=== PATIENT | female | born 1945 | race Caucasian/White ===

== ENCOUNTER 2016-10-29 11:34 | Outpatient (CLI) | payer MEDICARE, BC ==
[2016-10-29 19:47] LABS: BASOPHILS % (AUTO) 0.6 %; EOSINOPHILS # (AUTO) 0.3 10^3/uL (0.0-0.7); EOSINOPHILS % (AUTO) 3.7 %; HCT - HEMATOCRIT 39.2 % (37.0-47.0); HGB - HEMOGLOBIN 12.8 g/dL (12.0-16.0); LYMPHOCYTES % (AUTO) 26.8 %; MEAN CORPUSCULAR HEMOGLOBIN 30.6 pg (27.0-31.0); MEAN CORPUSCULAR HGB CONC 32.7 g/dL (32.0-36.0); MEAN CORPUSCULAR VOLUME 93.5 fL (81.0-99.0); MEAN PLATELET VOLUME 7.4 fL (7.9-10.8); MONOCYTES # (AUTO) 0.5 10^3/uL (0.0-1.0); MONOCYTES % (AUTO) 6.6 %; NEUTROPHILS # (AUTO) 4.6 10^3/uL (1.5-6.6); NEUTROPHILS % (AUTO) 62.3 %; RED BLOOD COUNT 4.19 10^6/uL (4.20-5.40); RED CELL DISTRIBUTION WIDTH 14.8 % (12.0-15.0); UNCORRECTED WHITE BLOOD COUNT 7.4 x10^3/uL; WHITE BLOOD COUNT 7.4 x10^3/uL (4.8-10.8)
[2016-10-29 19:54] LABS: ALBUMIN/GLOBULIN RATIO 1.4 (1.0-2.2); BILIRUBIN,TOTAL 0.6 mg/dL (0.2-1.0); BUN - BLOOD UREA NITROGEN 23 mg/dL (6-20); CALCIUM 9.2 mg/dL (8.5-10.3); CARBON DIOXIDE - CO2 27 mmol/L (21-32); CHLORIDE 101 mmol/L (101-111); GFR - MDRD 55 (>89); GLUCOSE 119 mg/dL (70-100); POTASSIUM 4.2 mmol/L (3.5-5.0); SODIUM 137 mmol/L (135-145)
[2016-10-29 20:29] LABS: HEMOGLOBIN A1C 0.64 g/dL
== END 2016-10-29 11:35 | disposition home or self-care (01) ==
LOC: LAB.N 11:34
PROVIDERS: ATTEND Nurse Practitioner Gerontology
DX: E11.9 Type 2 diabetes mellitus without complications (principal); I10 Essential (primary) hypertension; Z79.899 Other long term (current) drug therapy
CPT/HCPCS: 36415; 80053; 83036; 84443; 85025

== ENCOUNTER 2017-02-01 10:36 | Outpatient (CLI) | payer MEDICARE, BC ==
[2017-02-01 13:27] LABS: BUN - BLOOD UREA NITROGEN 21 mg/dL (6-20); CALCIUM 9.2 mg/dL (8.5-10.3); CARBON DIOXIDE - CO2 28 mmol/L (21-32); CHLORIDE 100 mmol/L (101-111); CHOLESTEROL 179 mg/dL; CREATININE 0.9 mg/dL (0.4-1.0); GFR - MDRD 62 (>89); GLUCOSE 149 mg/dL (70-100); HDL CHOLESTEROL 60 mg/dL; LDL/HDL RATIO 1.4 (<4.4); POTASSIUM 4.3 mmol/L (3.5-5.0); SODIUM 137 mmol/L (135-145); TRIGLYCERIDES 181 mg/dL; VLDL CHOLESTEROL 36 mg/dL
== END 2017-02-01 10:37 | disposition home or self-care (01) ==
LOC: LAB.N 10:36
PROVIDERS: ATTEND Nurse Practitioner Gerontology
DX: R94.4 Abnormal results of kidney function studies (principal); E78.5 Hyperlipidemia, unspecified; E78.1 Pure hyperglyceridemia
CPT/HCPCS: 36415; 80048; 80061

== ENCOUNTER 2017-02-25 13:46 | Outpatient (CLI) | payer MEDICARE, BC ==
[2017-02-25 19:51] LABS: HB2 TOTAL 12.9 g/dL; HEMOGLOBIN A1C 0.65 g/dL; HEMOGLOBIN A1C % 6.8 % (4.6-6.2)
== END 2017-02-25 13:47 | disposition home or self-care (01) ==
LOC: LAB.N 13:46
PROVIDERS: ATTEND Nurse Practitioner Gerontology
DX: E11.9 Type 2 diabetes mellitus without complications (principal)
CPT/HCPCS: 36415; 83036

== ENCOUNTER 2017-05-29 13:07 | Outpatient (CLI) | payer MEDICARE, BC ==
[2017-05-29 19:59] LABS: HB2 TOTAL 13.8 g/dL; HEMOGLOBIN A1C 0.68 g/dL; HEMOGLOBIN A1C % 6.7 % (4.6-6.2)
== END 2017-05-29 13:08 | disposition home or self-care (01) ==
LOC: LAB.N 13:07
PROVIDERS: ATTEND Nurse Practitioner Gerontology
DX: E11.9 Type 2 diabetes mellitus without complications (principal)
CPT/HCPCS: 36415; 83036

== ENCOUNTER 2018-04-02 10:47 | Outpatient (CLI) | payer MEDICARE, BC ==
[2018-04-02 12:49] LABS: BASOPHILS % (AUTO) 0.5 %; EOSINOPHILS # (AUTO) 0.3 10^3/uL (0.0-0.7); HGB - HEMOGLOBIN 12.3 g/dL (12.0-16.0); LYMPHOCYTES # (AUTO) 1.8 10^3/uL (1.5-3.5); LYMPHOCYTES % (AUTO) 27.2 %; MEAN CORPUSCULAR HEMOGLOBIN 30.9 pg (27.0-31.0); MEAN CORPUSCULAR HGB CONC 34.3 g/dL (32.0-36.0); MEAN CORPUSCULAR VOLUME 90.1 fL (81.0-99.0); MEAN PLATELET VOLUME 7.6 fL (7.9-10.8); MONOCYTES # (AUTO) 0.5 10^3/uL (0.0-1.0); MONOCYTES % (AUTO) 7.9 %; NEUTROPHILS % (AUTO) 60.4 %; PLT - PLATELET COUNT 440 10^3/uL (130-450); RED CELL DISTRIBUTION WIDTH 14.3 % (12.0-15.0); WHITE BLOOD COUNT 6.6 x10^3/uL (4.8-10.8)
[2018-04-02 13:21] LABS: HB2 TOTAL 13.2 g/dL; HEMOGLOBIN A1C 0.72 g/dL; HEMOGLOBIN A1C % 7.1 % (4.6-6.2)
[2018-04-02 13:25] LABS: ALBUMIN 4.4 g/dL (3.2-5.5); ALBUMIN/GLOBULIN RATIO 1.5 (1.0-2.2); ALKALINE PHOSPHATASE 60 IU/L (42-121); ALT ALANINE AMINOTRANSFERASE 24 IU/L (10-60); AST ASPARTATE AMINOTRANSFERASE 26 IU/L (10-42); BILIRUBIN,TOTAL 0.5 mg/dL (0.2-1.0); BUN - BLOOD UREA NITROGEN 19 mg/dL (6-20); CALCIUM 9.2 mg/dL (8.5-10.3); CARBON DIOXIDE - CO2 27 mmol/L (21-32); CHLORIDE 100 mmol/L (101-111); CHOL/HDL RATIO 3.7 (<4.4); CHOLESTEROL 174 mg/dL; CREATININE 0.9 mg/dL (0.4-1.0); GFR - MDRD 62 (>89); GLUCOSE 172 mg/dL (70-100); HDL CHOLESTEROL 47 mg/dL; LDL CHOLESTEROL,CALCULATED 78 mg/dL; LDL/HDL RATIO 1.7 (<4.4); SODIUM 137 mmol/L (135-145); TOTAL PROTEIN 7.4 g/dL (6.7-8.2); VLDL CHOLESTEROL 49 mg/dL
== END 2018-04-02 23:59 | disposition home or self-care (01) ==
LOC: LAB.N 10:47
PROVIDERS: ATTEND Nurse Practitioner Gerontology
DX: F41.8 Other specified anxiety disorders (principal); E78.5 Hyperlipidemia, unspecified; I10 Essential (primary) hypertension; E11.9 Type 2 diabetes mellitus without complications; Z79.899 Other long term (current) drug therapy
CPT/HCPCS: 36415; 80053; 80061; 83036; 83721; 85025

== ENCOUNTER 2018-08-15 09:41 | Outpatient (CLI) | payer MEDICARE, BC ==
[2018-08-15 12:04] LABS: BASOPHILS % (AUTO) 0.3 %; EOSINOPHILS # (AUTO) 0.3 10^3/uL (0.0-0.7); EOSINOPHILS % (AUTO) 5.6 %; HGB - HEMOGLOBIN 11.5 g/dL (12.0-16.0); LYMPHOCYTES # (AUTO) 1.4 10^3/uL (1.5-3.5); LYMPHOCYTES % (AUTO) 23.3 %; MEAN CORPUSCULAR HEMOGLOBIN 30.7 pg (27.0-31.0); MEAN CORPUSCULAR HGB CONC 32.5 g/dL (32.0-36.0); MEAN CORPUSCULAR VOLUME 94.7 fL (81.0-99.0); MEAN PLATELET VOLUME 9.6 fL (7.9-10.8); MONOCYTES # (AUTO) 0.5 10^3/uL (0.0-1.0); MONOCYTES % (AUTO) 7.5 %; NEUTROPHILS # (AUTO) 3.8 10^3/uL (1.5-6.6); NEUTROPHILS % (AUTO) 62.6 %; PLT - PLATELET COUNT 434 10^3/uL (130-450); RED BLOOD COUNT 3.74 10^6/uL (4.20-5.40); RED CELL DISTRIBUTION WIDTH 13.7 % (12.0-15.0); WHITE BLOOD COUNT 6.1 x10^3/uL (4.8-10.8)
[2018-08-15 12:21] LABS: ALBUMIN 4.4 g/dL (3.2-5.5); ALBUMIN/GLOBULIN RATIO 1.3 (1.0-2.2); ALKALINE PHOSPHATASE 65 IU/L (42-121); ALT ALANINE AMINOTRANSFERASE 21 IU/L (10-60); AST ASPARTATE AMINOTRANSFERASE 27 IU/L (10-42); BILIRUBIN,TOTAL 0.6 mg/dL (0.2-1.0); BUN - BLOOD UREA NITROGEN 24 mg/dL (6-20); CALCIUM 8.9 mg/dL (8.5-10.3); CARBON DIOXIDE - CO2 25 mmol/L (21-32); CHLORIDE 103 mmol/L (101-111); CHOL/HDL RATIO 3.1 (<4.4); CHOLESTEROL 158 mg/dL; CREATININE 1.3 mg/dL (0.4-1.0); GFR - MDRD 40 (>89); GLUCOSE 195 mg/dL (70-100); HDL CHOLESTEROL 51 mg/dL; LDL CHOLESTEROL,CALCULATED 61 mg/dL; LDL/HDL RATIO 1.2 (<4.4); SODIUM 140 mmol/L (135-145); TOTAL PROTEIN 7.8 g/dL (6.7-8.2); VLDL CHOLESTEROL 46 mg/dL
[2018-08-15 13:15] LABS: HB2 TOTAL 12.5 g/dL; HEMOGLOBIN A1C 0.74 g/dL; HEMOGLOBIN A1C % 7.6 % (4.6-6.2)
== END 2018-08-15 23:59 | disposition home or self-care (01) ==
LOC: LAB.N 09:41
PROVIDERS: ATTEND Nurse Practitioner Gerontology
DX: E78.5 Hyperlipidemia, unspecified (principal); E11.9 Type 2 diabetes mellitus without complications; Z79.899 Other long term (current) drug therapy; F41.8 Other specified anxiety disorders; I10 Essential (primary) hypertension
CPT/HCPCS: 36415; 80053; 80061; 83036; 83721; 85025

== ENCOUNTER 2018-11-28 14:45 | Outpatient (CLI) | payer MEDICARE, BC ==
[2018-11-28 18:40] LABS: BASOPHILS % (AUTO) 0.5 %; EOSINOPHILS # (AUTO) 0.3 10^3/uL (0.0-0.7); EOSINOPHILS % (AUTO) 3.7 %; HGB - HEMOGLOBIN 10.9 g/dL (12.0-16.0); LYMPHOCYTES # (AUTO) 1.8 10^3/uL (1.5-3.5); LYMPHOCYTES % (AUTO) 23.8 %; MEAN CORPUSCULAR HEMOGLOBIN 29.6 pg (27.0-31.0); MEAN CORPUSCULAR HGB CONC 31.3 g/dL (32.0-36.0); MEAN CORPUSCULAR VOLUME 94.6 fL (81.0-99.0); MEAN PLATELET VOLUME 9.4 fL (7.9-10.8); MONOCYTES # (AUTO) 0.5 10^3/uL (0.0-1.0); MONOCYTES % (AUTO) 7.3 %; NEUTROPHILS # (AUTO) 4.7 10^3/uL (1.5-6.6); NEUTROPHILS % (AUTO) 64.3 %; PLT - PLATELET COUNT 435 10^3/uL (130-450); RED BLOOD COUNT 3.68 10^6/uL (4.20-5.40); RED CELL DISTRIBUTION WIDTH 13.6 % (12.0-15.0); WHITE BLOOD COUNT 7.4 x10^3/uL (4.8-10.8)
[2018-11-28 18:56] LABS: BILIRUBIN,URINE NEGATIVE (NEGATIVE); GLUCOSE, URINE (UA) 100 mg/dL (NEGATIVE); KETONES,URINE (UA) NEGATIVE (NEGATIVE); LEUKOCYTE ESTERASE, URINE TRACE (NEGATIVE); NITRITE,URINE NEGATIVE (NEGATIVE); OCCULT BLOOD,URINE NEGATIVE (NEGATIVE); PH,URINE 5.5 PH (5.0-7.5); PROTEIN,URINE NEGATIVE (NEGATIVE); UROBILINOGEN,URINE 0.2 (NORMAL) E.U./dL (NORMAL)
[2018-11-28 19:01] LABS: CREATININE,URINE 63.3 mg/dL; MICROALBUM/CREATININE RATIO,UR 7.9 ug/mg (<30.0); MICROALBUMIN,URINE 0.5 mg/dL (0-300.0)
[2018-11-28 19:03] LABS: BACTERIA,URINE Few /HPF (None Seen); CLARITY,URINE CLEAR (CLEAR); RBC,URINE 0-5 /HPF (0-5); SQUAMOUS EPITHELIAL CELL,UR RARE Squamous (<= Few)
[2018-11-28 19:04] LABS: ALBUMIN 4.4 g/dL (3.2-5.5); ALBUMIN/GLOBULIN RATIO 1.5 (1.0-2.2); BILIRUBIN,TOTAL 0.5 mg/dL (0.2-1.0); CALCIUM 8.8 mg/dL (8.5-10.3); CREATININE 1.3 mg/dL (0.4-1.0); TOTAL PROTEIN 7.4 g/dL (6.7-8.2)
== END 2018-11-28 23:59 | disposition home or self-care (01) ==
LOC: LAB.N 14:45
PROVIDERS: ATTEND Internal Medicine
DX: I12.9 Hypertensive chronic kidney disease with stage 1 through stage 4 chronic kidney disease, or unspecified chronic kidney disease (principal); E11.22 Type 2 diabetes mellitus with diabetic chronic kidney disease; N18.9 Chronic kidney disease, unspecified; E78.5 Hyperlipidemia, unspecified; E11.65 Type 2 diabetes mellitus with hyperglycemia
CPT/HCPCS: 36415; 80053; 81001; 82043; 82570; 85025; 87086

== ENCOUNTER 2019-04-15 11:41 | Outpatient (CLI) | payer MEDICARE, BC ==
[2019-04-15 18:34] LABS: BASOPHILS % (AUTO) 0.6 %; EOSINOPHILS # (AUTO) 0.3 10^3/uL (0.0-0.7); EOSINOPHILS % (AUTO) 4.9 %; HGB - HEMOGLOBIN 11.9 g/dL (12.0-16.0); LYMPHOCYTES # (AUTO) 1.6 10^3/uL (1.5-3.5); LYMPHOCYTES % (AUTO) 24.1 %; MEAN CORPUSCULAR HGB CONC 31.8 g/dL (32.0-36.0); MEAN CORPUSCULAR VOLUME 94.2 fL (81.0-99.0); MEAN PLATELET VOLUME 9.5 fL (7.9-10.8); MONOCYTES # (AUTO) 0.5 10^3/uL (0.0-1.0); MONOCYTES % (AUTO) 7.1 %; NEUTROPHILS # (AUTO) 4.2 10^3/uL (1.5-6.6); PLT - PLATELET COUNT 472 10^3/uL (130-450); RED BLOOD COUNT 3.97 10^6/uL (4.20-5.40); WHITE BLOOD COUNT 6.7 x10^3/uL (4.8-10.8)
[2019-04-15 19:06] LABS: ALBUMIN 4.3 g/dL (3.2-5.5); ALBUMIN/GLOBULIN RATIO 1.3 (1.0-2.2); BILIRUBIN,TOTAL 0.6 mg/dL (0.2-1.0); CALCIUM 8.9 mg/dL (8.5-10.3); CREATININE 1.1 mg/dL (0.4-1.0); TOTAL PROTEIN 7.5 g/dL (6.7-8.2)
[2019-04-15 19:31] LABS: HB2 TOTAL 12.6 g/dL; HEMOGLOBIN A1C 0.76 g/dL; HEMOGLOBIN A1C % 7.7 % (4.6-6.2)
== END 2019-04-15 23:59 | disposition home or self-care (01) ==
LOC: LAB.N 11:41
PROVIDERS: ATTEND Nurse Practitioner Gerontology
DX: E11.9 Type 2 diabetes mellitus without complications (principal)
CPT/HCPCS: 36415; 80053; 83036; 85025

== ENCOUNTER → 2019-08-10 | Outpatient (CLI) | payer MEDICARE, BC ==
[2019-08-10 18:11] LABS: CALCIUM 9.2 mg/dL (8.5-10.3); CREATININE 1.2 mg/dL (0.4-1.0)
[2019-08-10 18:46] LABS: HB2 TOTAL 12.4 g/dL; HEMOGLOBIN A1C 0.69 g/dL; HEMOGLOBIN A1C % 7.2 % (4.6-6.2)
== END ==
LOC: LAB.WCP 08:00
PROVIDERS: ATTEND Family Medicine
DX: E11.9 Type 2 diabetes mellitus without complications (principal)
CPT/HCPCS: 36415; 80048; 83036

== ENCOUNTER 2020-06-21 08:34 | Emergency (ER) | payer MEDICARE, BC ==
--- NOTE | 2020-06-21 08:50 | ED Physician Documentation ---
PD HPI HEADACHE - Stated complaint Stated Complaint: HEAD PX - Chief complaint Chief Complaint: Neuro - History obtained from History obtained from: Patient - History of Present Illness Timing - onset: Last night Timing - onset during: Sleep, Rest Timing - duration: Hours Timing - details: Abrupt onset, Still present Worst headache ever?: Worst headache ever? (she states worst headache. Had similar though somewhat not as severe several weeks ago that lasted few hours.) Location: Right Quality: Throbbing, Aching Associated symptoms: Nausea. No: Fever, Stiff neck, Vomiting, Weakness, Numbness, Eye pain, Vision changes Improved by: No: Rest Worsened by: Light. No: Noise, Moving Contributing factors: No: Possible carbon monoxide, Hypertension, Recent illness, Trauma Similar symptoms before: No diagnosis (has had similar headache few weeks ago that was self limited and improved after few hours. Denies history of migraines when younger.) Recently seen: Not recently seen Review of Systems Constitutional: denies: Fever, Chills Eyes: reports: Photophobia. denies: Loss of vision, Decreased vision Nose: denies: Rhinorrhea / runny nose, Congestion Throat: denies: Sore throat Cardiac: denies: Chest pain / pressure Respiratory: denies: Cough GI: denies: Abdominal Pain, Nausea, Vomiting Skin: denies: Rash, Lesions Neurologic: denies: Focal weakness, Numbness PD PAST MEDICAL HISTORY - Past Medical History Cardiovascular: High cholesterol, Hypertension Respiratory: None Endocrine/Autoimmune: Type 2 diabetes - Present Medications Home Medications: Ambulatory Orders Medication Instructions Recorded Confirmed Aspirin Chewable [[place] 81 mg PO DAILY 06/05/13 06/05/13 Aspirin] Biotin 100 gm MC DAILY 06/05/13 06/05/13 Calcium Citrate 500 mg PO DAILY 06/05/13 06/05/13 Cholecalciferol (Vitamin D3) 2,000 unit PO DAILY 06/05/13 06/05/13 [Vitamin D3] Estradiol [Vivelle-Dot] 0.0375 each TD Q7D 06/05/13 06/05/13 Fluticasone Furoate [Veramyst] 10 gm NS 06/05/13 06/05/13 Furosemide 20 mg PO QAM 06/05/13 06/05/13 Lysine 1,000 mg PO DAILY 06/05/13 06/05/13 Alexis Krill 300 mg 06/05/13 06/05/13 Metformin HCl 1,000 mg PO BID 06/05/13 06/05/13 Metoprolol Tartrate [Lopressor] 25 mg PO BID 06/05/13 06/05/13 Multivitamin [Multivitamins] 1 DAILY 06/05/13 06/05/13 Potassium Chloride [K-Tab] 10 meq PO DAILY 06/05/13 06/05/13 Simvastatin [Zocor] 40 mg PO QPM 06/05/13 06/05/13 Venlafaxine HCl 75 mg PO DAILY 06/05/13 06/05/13 lisinopriL [Lisinopril] 0 mg PO 06/05/13 06/05/13 Ibuprofen [Motrin] 600 mg PO TID PRN #15 tab 06/21/20 Promethazine [Phenergan] 25 mg PO Q6H PRN #10 tab 06/21/20 - Allergies Allergies/Adverse Reactions: Allergies Allergy/AdvReac Type Severity Reaction Status Date / Time No Known Drug Allergies Allergy Verified 06/21/20 08:44 - Social History Smoking Status: Former smoker PD ED PE NORMAL - Vitals Vital signs reviewed: Yes - General General: Alert and oriented X 3, No acute distress, Well developed/nourished - HEENT HEENT: Atraumatic, PERRL, EOMI, Moist mucous membranes, Pharynx benign - Neck Neck: Supple, no meningeal sign, No adenopathy - Cardiac Cardiac: RRR, No murmur - Respiratory Respiratory: Clear bilaterally - Derm Derm: Normal color, Warm and dry - Neuro Neuro: Alert and oriented X 3, mail censor 2-12 intact, No motor deficit, No sensory deficit, Normal speech Eye Opening: Spontaneous Motor: Obeys Commands Verbal: Oriented GCS Score: 15 Results - Vitals Vitals: Vital Signs - 24 hr 06/21/20 06/21/20 08:37 11:19 Temperature 37.1 C Heart Rate 80 73 Respiratory 16 20 Rate Blood Pressure 150/77 H 145/73 H O2 Saturation 98 99 Oxygen O2 Source Room air - Labs Labs: Laboratory Tests 06/21/20 06/21/20 06/21/20 09:20 09:20 09:20 WBC 12.9 H RBC 3.88 L Hgb 11.6 L Hct 35.1 L MCV 90.5 MCH 29.9 MCHC 33.0 RDW 14.0 Plt Count 519 H MPV 9.3 Neut # (Auto) 9.8 H Lymph # (Auto) 2.0 [place] # (Auto) 0.8 Eos # (Auto) 0.2 Baso # (Auto) 0.0 Absolute Nucleated RBC 0.00 Nucleated RBC % 0.0 ESR 11 Sodium 135 Potassium 4.8 Chloride 98 L Carbon Dioxide 25 Anion Gap 12.0 BUN 23 H Creatinine 1.2 H Estimated GFR (MDRD) 44 L Glucose 170 H Calcium 8.9 Total Bilirubin 0.5 AST 29 ALT 25 Alkaline Phosphatase 60 Total Protein 7.7 Albumin 4.8 Globulin 2.9 Albumin/Globulin Ratio 1.7 Lipase 56 H - Rads (name of study) head CT/angio Radiology: Prelim report reviewed (no ICH, masses, focal lesions. No aneurysms. ), See rad report PD MEDICAL DECISION MAKING - ED course Complexity details: reviewed old records, reviewed results (no acute process. no signs of SAH, clots, sinus thrombosis, etc. No symptoms c/w infectious so don't see need for LP/CSF analysis. ), re-evaluated patient (headache greatly improved with Toradol/Compazine and fluids. Seems likely migraine. ), considered differential (headache symptoms seems c/w migraine, but unusual to have new migraines at her age. Will look for ICH, masses, tumors, etc. ), d/w patient Departure - Departure Disposition: 01 Home, Self Care Clinical Impression: Right-sided headache Migraine headache Qualifiers: Migraine type: unspecified Status migrainosus presence: without status migrainosus Intractability: not intractable Qualified Code(s): G43.909 - Migraine, unspecified, not intractable, without status migrainosus Condition: Stable Record reviewed to determine appropriate education?: Yes Instructions: ED Cephalgia Unspecified, ED Headache Migraine Prescriptions: Ibuprofen [Motrin] 600 mg PO TID PRN #15 tab PRN Reason: Pain Promethazine [Phenergan] 25 mg PO Q6H PRN #10 tab PRN Reason: Nausea / Vomiting Comments: Your basic blood tests and vital signs and CT of the head did not show any acute abnormalities. The character of your headache along with the improvement would be suggestive of migraine headache. This is unusual for your age but we will presume its that since there was no other obvious cause identified. For future headaches that are similar, you can try combination of promethazine nausea medicine combined with ibuprofen. This is a good combination to help with migraine type headaches. There are alternatives to try if these are not effective. Follow-up with your primary care if recurrent episodes in the near future to discuss other treatment options. Return to the ER if other symptoms develop such as localized weakness, vision change, fevers, other concerns. Discharge Date/Time: 06/21/20 11:38
[2020-06-21] MEDS ORDERED: SODIUM CHLORIDE 0.9% 1,000 ML IV STA (09:06)
[2020-06-21] MEDS ORDERED: KETOROLAC 30 MG/ML VIAL IVP STA (09:06)
[2020-06-21] MEDS ORDERED: PROCHLORPERAZINE 10 MG/2 ML VIAL IVP STA (09:07)
[2020-06-21] MEDS ORDERED: IOPAMIDOL-300 100 ML VIAL ONE (09:18)
[2020-06-21 09:47] LABS: ALBUMIN 4.8 g/dL (3.2-5.5); ALBUMIN/GLOBULIN RATIO 1.7 (1.0-2.2); BILIRUBIN,TOTAL 0.5 mg/dL (0.2-1.0); CALCIUM 8.9 mg/dL (8.5-10.3); CREATININE 1.2 mg/dL (0.4-1.0); POTASSIUM 4.8 mmol/L (3.5-5.0); TOTAL PROTEIN 7.7 g/dL (6.7-8.2)
[2020-06-21 09:56] LABS: BASOPHILS % (AUTO) 0.3 %; EOSINOPHILS # (AUTO) 0.2 10^3/uL (0.0-0.7); EOSINOPHILS % (AUTO) 1.6 %; HCT - HEMATOCRIT 35.1 % (37.0-47.0); HGB - HEMOGLOBIN 11.6 g/dL (12.0-16.0); LYMPHOCYTES % (AUTO) 15.4 %; MEAN CORPUSCULAR HEMOGLOBIN 29.9 pg (27.0-31.0); MEAN CORPUSCULAR VOLUME 90.5 fL (81.0-99.0); MEAN PLATELET VOLUME 9.3 fL (7.9-10.8); MONOCYTES # (AUTO) 0.8 10^3/uL (0.0-1.0); MONOCYTES % (AUTO) 6.1 %; NEUTROPHILS # (AUTO) 9.8 10^3/uL (1.5-6.6); NEUTROPHILS % (AUTO) 76.3 %; PLT - PLATELET COUNT 519 10^3/uL (130-450); RED BLOOD COUNT 3.88 10^6/uL (4.20-5.40); WHITE BLOOD COUNT 12.9 x10^3/uL (4.8-10.8)
[2020-06-21] MEDS ORDERED: IOPAMIDOL-300 100 ML VIAL IVP ONE (10:54)
--- NOTE | 2020-06-21 11:04 | CT Report ---
PROCEDURE: ANGIO HEAD W/WO INDICATIONS: abrupt headache last evening CONTRAST: IV CONTRAST: Isovue 300 ml: 80 PO CONTRAST: *NO PO CONTRAST TECHNIQUE: Precontrast 4.5 mm thick angled axial sections acquired from the foramen magnum to the vertex. Afte r the administration of intravenous contrast, 1 mm thick sections acquired through the [place] of [place] is. Postcontrast 4.5 mm thick sections then re-acquired from the foramen magnum to the vertex. 3-di mensional feceigv-upoklzota-urpofepsnu (MIP) and/or volume rendering reformats were not acquired of t he central intracranial vasculature. For radiation dose reduction, the following was used: automate d exposure control, adjustment of mA and/or kV according to patient size. COMPARISON: None FINDINGS: Image quality: Excellent. Anterior circulation: Intracranial internal carotid arteries are normal in size and flow. Mild athe rosclerotic calcification noted in the cavernous portions of both internal carotid arteries without s tenosis. The flow within the paired anterior cerebral arteries is normal and symmetric. The flow wit hin the middle cerebral arteries is normal and symmetric. The anterior communicating artery is seen. No aneurysms are seen. Posterior circulation: Visualized portions of the vertebral arteries demonstrate normal caliber, and join to form a normal appearing basilar artery. There is intradural left vertebral artery dominance . Flow within the posterior cerebral arteries is normal and symmetric. No aneurysms are seen. CSF spaces: Ventricles are normal in size and shape. Basal cisterns are patent. No extra-axial flu id collections. Brain: No midline shift. No intracranial bleeds or masses. Mitchell-white matter interface appears int act. There is mild age-appropriate cerebral and cerebellar atrophy and chronic ischemic change noted . Skull and face: Calvarium and facial bones appear intact, without suspicious lesions. Sinuses: Visualized sinuses and mastoids are clear. IMPRESSION: Mild age-appropriate atrophy and chronic ischemic change without intracranial hemorrhage or mass effe ct. Mild atherosclerotic vascular calcification without large vessel occlusion, aneurysm or vascular malf ormation. Reviewed by: Christo Chamberlain MD on 06/21/2020 10:03 AM KRISTAL Approved by: Christo Chamberlain MD on 06/21/2020 10:03 AM KRISTAL Station ID: [id number]
[2020-06-21 11:20] VITALS: BP 145/73
== END 2020-06-21 11:38 | disposition home or self-care (01) ==
LOC: ED 08:34
DX: G43.909 Migraine, unspecified, not intractable, without status migrainosus (principal); I10 Essential (primary) hypertension; E11.9 Type 2 diabetes mellitus without complications; Z79.84 Long term (current) use of oral hypoglycemic drugs; Z87.891 Personal history of nicotine dependence
CPT/HCPCS: 36415; 70496; 80053; 83690; 85025; 85651; 96361; 96374; 96375; 99284; Q9967

== ENCOUNTER 2020-07-21 08:00 | Outpatient (CLI) | payer MEDICARE, BC ==
[2020-07-21 17:53] LABS: BASOPHILS % (AUTO) 0.5 %; EOSINOPHILS # (AUTO) 0.3 10^3/uL (0.0-0.7); EOSINOPHILS % (AUTO) 4.1 %; HCT - HEMATOCRIT 38.1 % (37.0-47.0); HGB - HEMOGLOBIN 11.8 g/dL (12.0-16.0); LYMPHOCYTES # (AUTO) 1.8 10^3/uL (1.5-3.5); MEAN CORPUSCULAR HEMOGLOBIN 29.4 pg (27.0-31.0); MEAN CORPUSCULAR VOLUME 94.8 fL (81.0-99.0); MEAN PLATELET VOLUME 9.4 fL (7.9-10.8); MONOCYTES # (AUTO) 0.5 10^3/uL (0.0-1.0); MONOCYTES % (AUTO) 7.1 %; NEUTROPHILS # (AUTO) 4.7 10^3/uL (1.5-6.6); NEUTROPHILS % (AUTO) 63.9 %; PLT - PLATELET COUNT 551 10^3/uL (130-450); RED BLOOD COUNT 4.02 10^6/uL (4.20-5.40); RED CELL DISTRIBUTION WIDTH 14.4 % (12.0-15.0); WHITE BLOOD COUNT 7.3 x10^3/uL (4.8-10.8)
[2020-07-21 18:21] LABS: ALBUMIN 4.8 g/dL (3.2-5.5); ALBUMIN/GLOBULIN RATIO 1.5 (1.0-2.2); ALKALINE PHOSPHATASE 58 IU/L (42-121); ALT ALANINE AMINOTRANSFERASE 27 IU/L (10-60); AST ASPARTATE AMINOTRANSFERASE 31 IU/L (10-42); BILIRUBIN,TOTAL 0.7 mg/dL (0.2-1.0); BUN - BLOOD UREA NITROGEN 23 mg/dL (6-20); CALCIUM 9.2 mg/dL (8.5-10.3); CARBON DIOXIDE - CO2 27 mmol/L (21-32); CHLORIDE 101 mmol/L (101-111); CHOL/HDL RATIO 3.8 (<4.4); CHOLESTEROL 199 mg/dL; CREATININE 1.4 mg/dL (0.4-1.0); GFR - MDRD 37 (>89); GLUCOSE 211 mg/dL (70-100); HDL CHOLESTEROL 53 mg/dL; LDL CHOLESTEROL,CALCULATED 88 mg/dL; LDL/HDL RATIO 1.7 (<4.4); POTASSIUM 4.7 mmol/L (3.5-5.0); SODIUM 139 mmol/L (135-145); TRIGLYCERIDES 292 mg/dL; VLDL CHOLESTEROL 58 mg/dL
[2020-07-21 18:33] LABS: THYROID STIMULATING HORMONE 3.23 uIU/mL (0.34-5.60)
[2020-07-21 20:26] LABS: ESTIMATED AVERAGE GLUCOSE 166 mg/dL (70-100); HEMOGLOBIN A1c% 7.4 % (4.27-6.07)
== END 2020-07-21 23:59 | disposition home or self-care (01) ==
LOC: LAB.WCP 08:00
PROVIDERS: ATTEND Nurse Practitioner Family
DX: N28.9 Disorder of kidney and ureter, unspecified (principal); I10 Essential (primary) hypertension; E78.5 Hyperlipidemia, unspecified; E11.9 Type 2 diabetes mellitus without complications
CPT/HCPCS: 36415; 80053; 80061; 83036; 83721; 84443; 85025

== ENCOUNTER 2021-04-13 09:30 | Outpatient (CLI) | payer MEDICARE, BC ==
[2021-04-13 12:55] LABS: ALBUMIN 4.8 g/dL (3.2-5.5); ALBUMIN/GLOBULIN RATIO 1.6 (1.0-2.2); ALKALINE PHOSPHATASE 49 IU/L (42-121); ALT ALANINE AMINOTRANSFERASE 18 IU/L (10-60); AST ASPARTATE AMINOTRANSFERASE 21 IU/L (10-42); BILIRUBIN,TOTAL 0.7 mg/dL (0.2-1.0); BUN - BLOOD UREA NITROGEN 30 mg/dL (6-20); CALCIUM 9.2 mg/dL (8.5-10.3); CARBON DIOXIDE - CO2 25 mmol/L (21-32); CHLORIDE 104 mmol/L (101-111); CHOL/HDL RATIO 3.9 (<4.4); CHOLESTEROL 180 mg/dL; CREATININE 1.3 mg/dL (0.4-1.0); GFR - MDRD 40 (>89); GLUCOSE 189 mg/dL (70-100); HDL CHOLESTEROL 46 mg/dL; LDL CHOLESTEROL,CALCULATED 82 mg/dL; LDL/HDL RATIO 1.8 (<4.4); POTASSIUM 4.8 mmol/L (3.5-5.0); SODIUM 140 mmol/L (135-145); TOTAL PROTEIN 7.8 g/dL (6.7-8.2); TRIGLYCERIDES 259 mg/dL; VLDL CHOLESTEROL 52 mg/dL
[2021-04-13 12:58] LABS: THYROID STIMULATING HORMONE 3.07 uIU/mL (0.34-5.60)
[2021-04-13 13:01] LABS: CREATININE,URINE 188.8 mg/dL; MICROALBUM/CREATININE RATIO,UR 30.2 ug/mg (<30.0); MICROALBUMIN,URINE 5.7 mg/dL (0-300.0)
[2021-04-13 13:15] LABS: BASOPHILS % (AUTO) 0.6 %; EOSINOPHILS # (AUTO) 0.4 10^3/uL (0.0-0.7); EOSINOPHILS % (AUTO) 5.2 %; HCT - HEMATOCRIT 36.4 % (37.0-47.0); HGB - HEMOGLOBIN 11.5 g/dL (12.0-16.0); LYMPHOCYTES # (AUTO) 1.7 10^3/uL (1.5-3.5); LYMPHOCYTES % (AUTO) 25.3 %; MEAN CORPUSCULAR HEMOGLOBIN 28.2 pg (27.0-31.0); MEAN CORPUSCULAR HGB CONC 31.6 g/dL (32.0-36.0); MEAN CORPUSCULAR VOLUME 89.2 fL (81.0-99.0); MEAN PLATELET VOLUME 10.1 fL (7.9-10.8); MONOCYTES # (AUTO) 0.6 10^3/uL (0.0-1.0); MONOCYTES % (AUTO) 8.6 %; PLT - PLATELET COUNT 472 10^3/uL (130-450); RED BLOOD COUNT 4.08 10^6/uL (4.20-5.40); RED CELL DISTRIBUTION WIDTH 14.9 % (12.0-15.0); WHITE BLOOD COUNT 6.7 x10^3/uL (4.8-10.8)
[2021-04-13 14:09] LABS: ESTIMATED AVERAGE GLUCOSE 174 mg/dL (70-100); HEMOGLOBIN A1c% 7.7 % (4.27-6.07)
== END 2021-04-13 09:31 | disposition home or self-care (01) ==
LOC: LAB.N 09:30
PROVIDERS: ATTEND Nurse Practitioner
DX: E11.9 Type 2 diabetes mellitus without complications (principal); E78.5 Hyperlipidemia, unspecified; R53.83 Other fatigue
CPT/HCPCS: 36415; 80053; 80061; 82043; 82570; 82607; 83036; 83721; 84443; 85025

== ENCOUNTER 2021-04-13 09:55 | Outpatient (CLI) | payer MEDICARE, BC ==
--- NOTE | 2021-04-13 11:06 | XRAY Report ---
PROCEDURE: Shoulder 3 View RT INDICATIONS: SHOULDER JOINT PAIN, RIGHT TECHNIQUE: 3 views of the shoulder were acquired. COMPARISON: None. FINDINGS: Bones: No fractures or dislocations. No suspicious bony lesions. Moderate acromioclavicular and gle nohumeral joint degeneration. Ossific densities around the humeral head suspicious for articular bodi es. ? Osteochondromatosis. Visualized ribs appear intact. Soft tissues: No suspicious soft tissue calcifications. IMPRESSION: 1. Suspect a point articular bodies. ? Osteochondromatosis. If clinically indicated, MRI may be helpf ul. 2. Moderate degenerative joint disease. Reviewed by: Harmeet Smith MD on 04/13/2021 11:05 AM PST Approved by: Harmeet Smith MD on 04/13/2021 11:05 AM PST Station ID: [id number]
== END 2021-04-13 09:56 | disposition home or self-care (01) ==
LOC: DI.N 09:55
PROVIDERS: ATTEND Nurse Practitioner
DX: M19.011 Primary osteoarthritis, right shoulder (principal); R93.6 Abnormal findings on diagnostic imaging of limbs; E11.9 Type 2 diabetes mellitus without complications; E78.5 Hyperlipidemia, unspecified; R53.83 Other fatigue
CPT/HCPCS: 36415; 80053; 80061; 82043; 82570; 82607; 83036; 83721; 84443; 85025

== ENCOUNTER 2021-10-17 09:57 | Outpatient (CLI) | payer MEDICARE, BC ==
[2021-10-17 12:20] LABS: BASOPHILS % (AUTO) 0.5 %; EOSINOPHILS # (AUTO) 0.3 10^3/uL (0.0-0.7); EOSINOPHILS % (AUTO) 4.1 %; HCT - HEMATOCRIT 35.9 % (37.0-47.0); HGB - HEMOGLOBIN 11.5 g/dL (12.0-16.0); LYMPHOCYTES # (AUTO) 1.8 10^3/uL (1.5-3.5); LYMPHOCYTES % (AUTO) 23.4 %; MEAN CORPUSCULAR HEMOGLOBIN 28.3 pg (27.0-31.0); MEAN CORPUSCULAR VOLUME 88.2 fL (81.0-99.0); MEAN PLATELET VOLUME 9.7 fL (7.9-10.8); MONOCYTES # (AUTO) 0.6 10^3/uL (0.0-1.0); MONOCYTES % (AUTO) 8.2 %; NEUTROPHILS % (AUTO) 63.4 %; PLT - PLATELET COUNT 469 10^3/uL (130-450); RED BLOOD COUNT 4.07 10^6/uL (4.20-5.40); RED CELL DISTRIBUTION WIDTH 14.7 % (12.0-15.0); WHITE BLOOD COUNT 7.8 x10^3/uL (4.8-10.8)
[2021-10-17 19:47] LABS: ESTIMATED AVERAGE GLUCOSE 166 mg/dL (70-100); HEMOGLOBIN A1c% 7.4 % (4.27-6.07)
== END 2021-10-17 09:58 | disposition home or self-care (01) ==
LOC: LAB.N 09:57
PROVIDERS: ATTEND Nurse Practitioner
DX: E11.22 Type 2 diabetes mellitus with diabetic chronic kidney disease (principal); Z51.81 Encounter for therapeutic drug level monitoring; I10 Essential (primary) hypertension
CPT/HCPCS: 36415; 82607; 83036; 85025

== ENCOUNTER 2022-05-24 15:30 | Outpatient (CLI) | payer MEDICARE, BC ==
--- NOTE | 2022-05-24 17:30 | XRAY Report ---
PROCEDURE: Foot 3 View RT INDICATIONS: FOOT AND ANKLE PAIN TECHNIQUE: 3 views of the foot were acquired. COMPARISON: None. FINDINGS: Bones: No fractures or dislocations. No suspicious bony lesions. Hallux valgus and bunion. Mild f irst MTP degenerative change. Soft tissues: No suspicious soft tissue calcifications or masses. IMPRESSION: Hallux valgus and bunion. Mild first MTP degenerative change. Reviewed by: Papito Soto MD on 05/24/2022 5:29 PM PDT Approved by: Papito Soto MD on 05/24/2022 5:29 PM PDT Station ID: [id number]
--- NOTE | 2022-05-24 17:30 | XRAY Report ---
PROCEDURE: Ankle 3 View RT INDICATIONS: FOOT AND ANKLE PAIN TECHNIQUE: 3 views of the ankle were acquired. COMPARISON: None. FINDINGS: Bones: No fractures or dislocations. Ankle mortise is normally aligned. No suspicious bony lesions . Soft tissues: No tibiotalar joint effusion. Achilles tendon appears normal. IMPRESSION: No evidence acute bony abnormality of the right ankle. If clinical suspicion and/or symptoms persist, further assessment with repeat plain films or advanced imaging (e.g., CT, MRI, or bone scan) may be helpful for further assessment. Reviewed by: Papito Soto MD on 05/24/2022 5:29 PM PDT Approved by: Papito Soto MD on 05/24/2022 5:29 PM PDT Station ID: [id number]
== END 2022-05-24 15:31 | disposition home or self-care (01) ==
LOC: DI 15:30
PROVIDERS: ATTEND Podiatrist
DX: M20.11 Hallux valgus (acquired), right foot (principal); M21.611 Bunion of right foot; M19.071 Primary osteoarthritis, right ankle and foot

== ENCOUNTER 2022-06-05 11:57 | Day surgery (SDC) | payer MEDICARE, BC ==
[~2022-06-05 11:57] MED LIST: LACTATED RINGERS 1,000 ML IV ONE
[2022-06-05] MEDS ORDERED: PROPOFOL 500 MG/50 ML 500 MG/50 ML VIAL ONE ×2 (12:44→13:19)
--- NOTE | 2022-06-05 13:17 | ANESTHESIA ---
Pre-Anesthesia VS, & Labs - Diagnosis screening - Procedure colonoscopy Vital Signs: Temp Pulse Resp BP Pulse Ox O2 Flow Rate 35.9 C L 69 16 143/83 H 99 06/05/22 12:17 06/05/22 12:17 06/05/22 12:17 06/05/22 12:17 06/05/22 12:17 Height: 5 ft 7 in Weight (kg): 79.8 kg Body Mass Index: 27.5 BMI Classification: Overweight - NPO >8 hours - Is Patient ?: No - Lab Results Current Lab Results: Laboratory Tests 06/05/22 12:21: POC Whole Bld Glucose 162 H Home Medications and Allergies Home Medications: Ambulatory Orders Atorvastatin Calcium 40 mg PO HS 06/04/22 SITagliptin [Januvia] 100 mg PO DAILY 06/04/22 Losartan Potassium 25 mg PO DAILY 06/05/22 Aspirin Chewable [[place] Aspirin] 81 mg PO DAILY 06/05/13 Calcium Citrate 500 mg PO DAILY 06/05/13 Cholecalciferol (Vitamin D3) [Vitamin D3] 1,000 unit PO DAILY 06/05/13 Furosemide 20 mg PO QAM 06/05/13 Metformin HCl 1,000 mg PO BID 06/05/13 Metoprolol Tartrate [Lopressor] 25 mg PO BID 06/05/13 Multivitamin [Multivitamins] 1 each PO DAILY 06/05/13 Potassium Chloride [K-Tab] 10 meq PO DAILY 06/05/13 Atorvastatin Calcium 40 mg PO HS 06/04/22 SITagliptin [Januvia] 100 mg PO DAILY 06/04/22 Losartan Potassium 25 mg PO DAILY 06/05/22 Allergies/Adverse Reactions: Allergies Allergy/AdvReac Type Severity Reaction Status Date / Time No Known Drug Allergies Allergy Verified 06/21/20 08:44 Anes History & Medical History - Anesthetic History Anesthesia Complications: reports: No previous complications Family history of Anesthesia Complications: Denies Family history of Malignant Hyperthermia: Denies - Medical History Cardiovascular: reports: High cholesterol, Hypertension Pulmonary: reports: None Gastrointestinal: reports: None Urinary: reports: None Neuro: reports: None Musculoskeletal: reports: None Endocrine/Autoimmune: reports: Type 2 diabetes Blood Disorders: reports: None Skin: reports: None Smoking Status: Former smoker - Surgical History General: reports: Colonoscopy Eyes Ears Nose Throat (EENT): reports: Cataracts Exam General: Alert, Oriented x3, Cooperative Dental: WNL Mouth Openin Fingerbreadth Neck Mobility: Normal Mallampati classification: II Thyromental Distance: less than 4 cm Respiratory: Lungs clear Cardiovascular: Regular rate Plan Anesthesia Type: General, Total IV Consent for Procedure(s) Verified and Reviewed: Yes Code Status: Attempt Resuscitation ASA classification: 3-Severe systemic disease Is this case an emergency?: No
[2022-06-05] MEDS ORDERED: LABETALOL 5 MG/1 ML 20 ML MDV ONE (13:40)
[2022-06-05] MEDS ORDERED: LACTATED RINGERS 1,000 ML IV ONE (14:00)
--- NOTE | 2022-06-05 15:44 | ANESTHESIA POST OP EVALUATION ---
Anesthesia Post Eval - Post Anesthesia Eval Vitals: Last Vital Signs Temp 36.0 C L 06/05/22 14:36 Pulse 64 06/05/22 14:36 Resp 16 06/05/22 14:36 BP 145/65 H 06/05/22 14:36 Pulse Ox 99 06/05/22 14:36 O2 Flow Rate CV Function Including HR & BP: Stable Pain Control: Satisfactory Nausea & Vomiting: Negative Mental Status: Baseline Respiratory Status: Airway Patent Hydration Status: Satisfactory Anesthesia Complications: None
[2022-06-05 16:22] VITALS: BP 170/70
--- NOTE | 2022-06-05 16:35 | CT Report ---
PROCEDURE: ABDOMEN/PELVIS WO INDICATIONS: incomplete colonoscopy(scope passed to transverse) TECHNIQUE: Water-soluble contrast was instilled via a rectal tube. Noncontrast 5 mm thick sections acquired from the diaphragms to the symphysis. 5 mm coronal and sagittal reformats were then performed. For radi ation dose reduction, the following was used: automated exposure control, adjustment of mA and/or kV according to patient size. COMPARISON: None. FINDINGS: Image quality: Excellent. Lung bases and heart: Unremarkable. Liver: Liver cysts. No suspicious lesions identified.. Gallbladder and biliary tree: Small dependent calcified gallstone. No gallbladder wall thickening. Spleen: Unremarkable. Pancreas: Unremarkable. Adrenals: Unremarkable. Kidneys and ureters: Unremarkable. Bowel and peritoneum: No bowel distension. No pathologic free fluid. The colon is well visualized. Th ere is a adequate bowel prep except for minimal debris present in the level of the cecum. There are n o findings which are suspicious for neoplasm involving the colon. No obstructing or constricting lesi ons. No suspicious filling defects identified. Normal appendix. Moderate sigmoid diverticulosis and m ild generalized diverticulosis without evidence of diverticulitis. Lymph nodes: No central or retroperitoneal adenopathy. Vessels: Unremarkable. PELVIS Reproductive organs: Uterus is surgically absent. Bladder: Unremarkable. Lymph nodes: Unremarkable. Bones: No aggressive osseous abnormality. Other: None. IMPRESSION: 1. No suspicious colonic lesions are identified for malignancy. 2. Moderate sigmoid diverticulosis, mild generalized diverticulosis. 3. No evidence acute abdominal process. Reviewed by: Papito Soto MD on 06/05/2022 4:33 PM PDT Approved by: Papito Soto MD on 06/05/2022 4:33 PM PDT Station ID: [id number]
[2022-06-07] MEDS ORDERED: bisacodyL 5 MG TABLET PO SCH (00:30)
== END 2022-06-05 11:58 | disposition home or self-care (01) ==
LOC: SDS 11:57
PROVIDERS: ATTEND Surgery
PROC: 0DBN8ZZ Excision of Sigmoid Colon, Via Natural or Artificial Opening Endoscopic (ICD-10-PCS; principal; 2022-06-05 13:15)
DX: Z12.11 Encounter for screening for malignant neoplasm of colon (principal); D12.5 Benign neoplasm of sigmoid colon; Z87.891 Personal history of nicotine dependence; K57.30 Diverticulosis of large intestine without perforation or abscess without bleeding; Z79.84 Long term (current) use of oral hypoglycemic drugs; E11.22 Type 2 diabetes mellitus with diabetic chronic kidney disease; I12.9 Hypertensive chronic kidney disease with stage 1 through stage 4 chronic kidney disease, or unspecified chronic kidney disease; N18.9 Chronic kidney disease, unspecified; Z80.0 Family history of malignant neoplasm of digestive organs
CPT/HCPCS: 45380; 74176; J7120

== ENCOUNTER 2022-08-07 11:44 | Outpatient (CLI) | payer MEDICARE, BC ==
[2022-08-07 17:50] LABS: BASOPHILS % (AUTO) 0.5 %; EOSINOPHILS # (AUTO) 0.5 10^3/uL (0.0-0.7); EOSINOPHILS % (AUTO) 7.2 %; HCT - HEMATOCRIT 36.3 % (37.0-47.0); HGB - HEMOGLOBIN 11.5 g/dL (12.0-16.0); LYMPHOCYTES % (AUTO) 31.1 %; MEAN CORPUSCULAR HGB CONC 31.7 g/dL (32.0-36.0); MEAN CORPUSCULAR VOLUME 88.5 fL (81.0-99.0); MEAN PLATELET VOLUME 9.5 fL (7.9-10.8); MONOCYTES # (AUTO) 0.6 10^3/uL (0.0-1.0); MONOCYTES % (AUTO) 9.1 %; NEUTROPHILS # (AUTO) 3.3 10^3/uL (1.5-6.6); NEUTROPHILS % (AUTO) 51.9 %; PLT - PLATELET COUNT 459 10^3/uL (130-450); RED CELL DISTRIBUTION WIDTH 14.9 % (12.0-15.0); WHITE BLOOD COUNT 6.3 x10^3/uL (4.8-10.8)
[2022-08-07 18:20] LABS: ALBUMIN 4.1 g/dL (3.2-5.5); ALBUMIN/GLOBULIN RATIO 1.1 (1.0-2.2); ALKALINE PHOSPHATASE 51 IU/L (42-121); ALT ALANINE AMINOTRANSFERASE 24 IU/L (10-60); AST ASPARTATE AMINOTRANSFERASE 25 IU/L (10-42); BILIRUBIN,TOTAL 0.6 mg/dL (0.2-1.0); BUN - BLOOD UREA NITROGEN 24 mg/dL (6-20); CALCIUM 8.7 mg/dL (8.5-10.3); CARBON DIOXIDE - CO2 23 mmol/L (21-32); CHLORIDE 107 mmol/L (101-111); CHOL/HDL RATIO 5.3 (<4.4); CHOLESTEROL 189 mg/dL; CREATININE 1.5 mg/dL (0.4-1.0); GFR - MDRD 34 (>89); GLUCOSE 156 mg/dL (70-100); HDL CHOLESTEROL 36 mg/dL; LDL CHOLESTEROL,CALCULATED 94 mg/dL; LDL/HDL RATIO 2.6 (<4.4); POTASSIUM 5.2 mmol/L (3.5-5.0); SODIUM 137 mmol/L (135-145); TOTAL PROTEIN 7.7 g/dL (6.7-8.2); TRIGLYCERIDES 294 mg/dL; VLDL CHOLESTEROL 59 mg/dL
[2022-08-07 18:24] LABS: CREATININE,URINE 168.2 mg/dL; MICROALBUM/CREATININE RATIO,UR 11.3 ug/mg (<30.0); MICROALBUMIN,URINE 1.9 mg/dL (0-300.0)
[2022-08-07 18:30] LABS: THYROID STIMULATING HORMONE 2.62 uIU/mL (0.34-5.60)
[2022-08-07 20:44] LABS: ESTIMATED AVERAGE GLUCOSE 171 mg/dL (70-100); HEMOGLOBIN A1c% 7.6 % (4.27-6.07)
== END 2022-08-07 11:45 | disposition home or self-care (01) ==
LOC: LAB.N 11:44
PROVIDERS: ATTEND Nurse Practitioner
DX: E11.22 Type 2 diabetes mellitus with diabetic chronic kidney disease (principal); Z51.81 Encounter for therapeutic drug level monitoring
CPT/HCPCS: 36415; 80053; 80061; 82043; 82570; 83036; 83721; 84443; 85025

== ENCOUNTER 2022-08-20 11:26 | Outpatient (CLI) | payer MEDICARE, BC ==
[2022-08-20 19:35] LABS: CALCIUM 9.1 mg/dL (8.5-10.3); CREATININE 1.5 mg/dL (0.4-1.0); POTASSIUM 5.3 mmol/L (3.5-5.0)
== END 2022-08-20 11:27 | disposition home or self-care (01) ==
LOC: LAB.N 11:26
PROVIDERS: ATTEND Nurse Practitioner
DX: Z51.81 Encounter for therapeutic drug level monitoring (principal)
CPT/HCPCS: 36415; 80048

== ENCOUNTER 2022-10-03 12:32 | Outpatient (CLI) | payer MEDICARE, BC ==
--- NOTE | 2022-10-03 16:25 | MRI Report ---
PROCEDURE: FOOT WO - RT INDICATIONS: RIGHT FOOT PAIN TECHNIQUE: Noncontrast sagittal T1 spin echo and T2 fast spin echo with fat saturation, long-axis T1 spin echo a nd T2 fast spin echo with fat saturation, short-axis proton density fast spin echo and T2 fast spin e cho with fat saturation through the forefoot. COMPARISON: Right foot radiograph dated 05/24/2022. FINDINGS: Image quality: Excellent. Bones and joints: Moderate osteoarthritic changes are noted throughout midfoot and forefoot joints mo re notably at first MTP joint and first interphalangeal joint. There is no acute fracture or dislocat ion. Nonspecific subcortical cystic changes are noted involving medial portion of medial cuneiform. N o metatarsal stress fractures. Marrow edema is noted involving lateral sesamoid of first metatarsal h ead without discrete fracture line. Soft tissues: The visualized plantar foot muscles demonstrate normal signal and bulk. Visualized fl exor and extensor tendons appear intact, without tenosynovitis. Thickened Lisfranc ligament with mild surrounding edema is seen. IMPRESSION: 1. Moderate midfoot and forefoot joint osteoarthritis. No acute fracture or dislocation. Edema involv ing lateral sesamoid of first metatarsal head without fracture line concerning for sesamoiditis. 2. Sprain/low-grade intrasubstance partial thickness tear involving principally Lisfranc ligament. No full-thickness ligament rupture. 3. Extensor and flexor tendons are grossly intact. Reviewed by: Ramon Betancourt MD on 10/03/2022 4:24 PM PDT Approved by: Ramon Betancourt MD on 10/03/2022 4:24 PM PDT Station ID: [id number]
--- NOTE | 2022-10-03 17:03 | MRI Report ---
PROCEDURE: ANKLE WO - RT INDICATIONS: RIGHT ANKLE PAIN TECHNIQUE: Noncontrast sagittal T1 spin echo and T2 fast spin echo with fat saturation, axial proton density fas t spin echo and T2 fast spin echo with fat saturation, coronal T1 spin echo and T2 fast spin echo wit h fat saturation through the ankle/hindfoot. COMPARISON: Right ankle radiograph dated 05/24/2022. FINDINGS: Image quality: Excellent. Bones and joints: 4 mm osteochondral injury involving medial weightbearing portion of talar dome is s een with surrounding edema. Mild to moderate midfoot and hindfoot joint osteoarthritic changes are se en with joint space narrowing, subchondral sclerosis and marginal osteophyte formation. Small tibiota lar and subtalar joint effusion is seen, no gross loose bodies. No fracture or dislocation. No other area of abnormal marrow signal. Medial structures: The posterior tibialis tendon is thickened with intrasubstance T2 hyperintense si gnal and small amount of fluid distending tendon sheath at the level of distal talus and talonavicula r joint. The flexor digitorum longus, and flexor hallucis longus tendons are intact. The posterior t ibial neurovascular bundle appears normal within the tarsal tunnel, without extrinsic mass effect. T he spring ligament and deltoid ligament are thickened with intrasubstance T2 hyperintense signal. Lateral structures: The anterior talofibular, calcaneofibular, and posterior talofibular ligaments a ppear intact. More superiorly, the anterior and posterior tibiofibular ligaments appear normal, as i s the intermalleolar ligament. The tibiofibular syndesmosis is normal in width at 2 mm or less. The peroneus longus and brevis tendons demonstrate normal location and morphology. Small amount of fluid distending peroneus tendon sheath is seen at the level of lateral malleolus tip. Adjacent bony peron eal tubercle and retrotrochlear prominence are normal in size. The sinus tarsi demonstrates normal f atty signal, without edema, fibrosis, or cyst formation. Visualized sinus tarsi components (cervical ligament, interosseous talocalcaneal ligament, roots of the inferior extensor retinaculum) appear no rmal. Anterior structures: The tibialis anterior, extensor hallucis longus, and extensor digitorum longus tendons appear intact. Posterior and plantar structures: Tendinosis and low-grade intrasubstance partial thickness tear invo lving distal 4.5 cm segment of Achilles tendon is seen extending to its posterior calcaneal insertion . No Achilles tendon rupture. Medial and lateral bands of the plantar fascia are mildly thickened wit h surrounding soft tissue edema near their calcaneal insertion. No abductor digiti quinti muscle atr ophy to suggest Ruiz neuropathy. IMPRESSION: 1. Mild to moderate midfoot and hindfoot joint osteoarthritis. No fracture or dislocation. 4 mm osteo chondral injury involving medial weightbearing portion of talar dome. Small tibiotalar and subtalar j oint effusion, no gross loose bodies. 2. Mild to moderate tendinosis involving posterior tibialis tendon at the level of distal talus and t alonavicular joint. 3. Low-grade tenosynovitis involving peroneus tendons at the level of lateral malleolus tip. 4. Low-grade medial ankle ligament sprain/partial thickness tear. Lateral ankle ligaments are intact. 5. Suggestion of tendinosis and low-grade partial-thickness tear involving distal Achilles tendon at its insertion on posterior calcaneus. No Achilles tendon rupture. 6. Very mild plantar fasciitis. Reviewed by: Ramon Betancourt MD on 10/03/2022 5:01 PM PDT Approved by: Ramon Betancourt MD on 10/03/2022 5:01 PM PDT Station ID: [id number]
--- NOTE | 2022-10-03 21:51 | DEXA Report ---
PROCEDURE: Dexa Spine and/or Hip INDICATIONS: POST MENOPAUSAL TECHNIQUE: Dual energy x-ray absorptiometry (DXA) was performed on a [employer] System. Regions measur ed are the AP Spine, femoral neck, and if needed forearm. COMPARISON: None FINDINGS: Lumbar Spine: Bone Mineral Density 1.4 x 6 g/cm/cm,T score 2.3. Normal Left Femoral Neck: Bone Mineral Density 1.040 g/cm/cm, T score 0.0. Normal Left Hip: Bone Mineral Density 1.113 g/cm/cm,T score 0.8. Normal (T score greater or equal to -1.0: NORMAL) (T score from -1.1 to -2.4: OSTEOPENIA) (T score less than or equal to -2.5 to: OSTEOPOROSIS) Impression: By WHO criteria, this patient has normal bone density. Patients with diagnosis of osteoporosis or osteopenia should have regular bone mineral density assess ment. For those eligible for Medicare, routine testing is allowed once every 2 years. Testing frequ ency can be increased for patients who have rapidly progressing disease or for those who are receivin g medical therapy to restore bone mass. Reviewed by: Elizabeth Gil MD on 10/03/2022 9:50 PM PDT Approved by: Elizabeth Gil MD on 10/03/2022 9:50 PM PDT Station ID: [id number]
== END 2022-10-03 12:33 | disposition home or self-care (01) ==
LOC: DI 12:32
PROVIDERS: ATTEND Nurse Practitioner
DX: Z78.0 Asymptomatic menopausal state (principal); M19.071 Primary osteoarthritis, right ankle and foot; M25.461 Effusion, right knee; M67.863 Other specified disorders of tendon, right knee; M65.9 Synovitis and tenosynovitis, unspecified; S93.401A Sprain of unspecified ligament of right ankle, initial encounter; S86.001A Unspecified injury of right Achilles tendon, initial encounter; M72.2 Plantar fascial fibromatosis; S93.691A Other sprain of right foot, initial encounter